=== PATIENT | male | born 1995 | race Caucasian/White ===

== ENCOUNTER 2016-11-14 07:48 | Emergency (ER) | payer OTHER ==
--- NOTE | 2016-11-14 09:20 | ED NURSING NOTES ---
Clinical Report - Nurs[facility] [address] [place] [address] 11/14/2016 7:50 Patient: TRINITY PETTIT TRIAGE Triage time 08:08. Chief Complaint: Location of symptoms- right hand. 08:09 11/14/16. 08:09 11/14/16. Alert. No acute distress. ( Pt cut right pinky finger this AM on glass, pt states this was from h). SEPSIS SCREEN: Sepsis Screen. Negative (no infection suspected/documented). NEETU COMA SCORE: Neetu Coma Scale: 15- eyes open spontaneously (4); best verbal response- oriented x 4 (5); best motor response- obeys commands (6). --08:10 Benitez Stark R.N. 08:00 11/14/16. BP: 142/90. HR: 90. RR: 18. O2 saturation: 100% on room air. Temp: 98.1 F (oral). Pain level now: 10/14. --08:10 Benitez Stark R.N. Weight: 77.1 kg stated. Height/Length: 69 inches Per Patient. BMI: 25.1. --08:01 Benitez Stark R.N. Medications None. --08:10 Benitez Stark R.N. Medication/allergy information source: the patient. --08:10 Benitez Stark R.N. Allergies Penicillin. --08:10 Benitez Stark R.N. History Arrived by private vehicle. Historian: patient. Accompanied by friend. Primary physician (NONE). 08:09 11/14/16. Injury occurred. This occurred today. Treatment PHYSICIAN RELATIONS REPRESENTATIVE: None. PAST MEDICAL HX: Tetanus status: unknown. Immunizations: status is unknown. SOCIAL HX: Smoker- current status unknown. History of drug use: marijuana. No alcohol use. No infectious disease exposure. ABUSE ASSESSMENT: No report of abuse. FALL RISK ASSESSMENT: Fall risk assessment completed. No fall risk identified. NUTRITIONAL RISK ASSESSMENT: The nutritional risk assessment revealed no deficiencies. FUNCTIONAL ASSESSMENT: Functional assessment: no impairments noted. LEARNING NEEDS ASSESSMENT: The learning needs assessment revealed no barriers. SKIN INTEGRITY ASSESSMENT: Skin integrity risk assessment completed. No skin integrity risk identified. --08:10 Benitez Stark R.N. PROBLEMS: Gastritis. Fall. Myofascial Strain. ADD - Attention Deficit Disorder. --08:10 Benitez Stark R.N. ADDITIONAL SURGERIES: no known surgeries. Assessment 08:11/14/16. --08:10 Benitez Stark R.N. Interventions 08:11/14/16. 08:11/14/16. ID and allergy band on patient. To treatment room. --08:10 Benitez Stark R.N. PHYSICAL ASSESSMENT 08:11/14/16. GENERAL / NEURO / PSYCH: Oriented X 4. Alert. Appears in no acute distress. EXTREMITIES: Right hand web space: laceration. SKIN: Skin is warm and dry. --08:10 Benitez Stark R.N. NURSING PROGRESS NOTES 08:11/14/2016 [id number] PERTUSSIS IM 0.5 mL given. (Lot#: [id number], expiration date: 05/14/2018, Glue Line Operator: sanofi pasteur). Given in the left deltoid. Allergies verified and confirmed 5 rights. Vaccine information statement provided to the patient. --08:16 Benitez Stark R.N. 08:10 11/14/16. Two patient identifiers checked. Call light placed in reach. Side rails up x 2. Bed placed in lowest position. Brakes of bed on. Patient ready for evaluation- chart flagged. --08:10 Benitez Stark R.N. Wound cleansed with water and Hibiclens. --08:21 Bonita Callejas 08:37 11/14/2016 Zofran ODT (Ondansetron) PO 4 mg given. Allergies verified and confirmed 5 rights. --08:37 Krissy Green R.N. 08:44 11/14/16. ( Pt became nauseous when MD was going to suture wound, gave Zofran PO). --08:44 Benitez Stark R.N. 08:54 11/14/2016 Lidocaine Injection 2 % given. Allergies verified and confirmed 5 rights. (given by ). --09:19 Benitez Stark R.N. DISPOSITION / DISCHARGE Departure time: 09:33. Condition at departure: improved. No learning barriers present. Discharge instructions provided and reviewed with the patient. Patient verbalized understanding. Written instructions provided in Estonian. ( Wound care done and abx oint applied). The patient was discharged home and accompanied by family. He left the Emergency Department ambulatory and via private vehicle. Family member driving. --09:34 Krissy Green R.N. 09:33 11/14/16. BP: 128/94. HR: 78. RR: 16. O2 saturation: 98%. Pain level now 0/10. --09:34 Krissy Green R.N. Locked/Released at 11/14/2016 10:06 by Benitez Stark R.N.
--- NOTE | 2016-11-14 09:20 | ED ORDER SUMMARY ---
..... Patient: TRINITY PETTIT OrderSheet [facility] VisitID: [id number] [address] [place] [address] 21y, M Registration Date/Time: 11/14/2016 ORDER SHEET Weight: 77.1 kg (stated) Allergies: Penicillin GENERAL ORDERS: Suture Set-up: (08:09 11/14/2016 Tete Spears) (Ack 8:15 JBoardlemarlin R.N.) (8:19 NEALardmitriy) MEDICATION ORDERS: Lidocaine Injection 2 % (soln) (NOW, place at bedside) (08:08 11/14/2016 Tete Spears) (Ack 8:11 JBoardley R.N.) (9:19 ORLYoardley R.N.) Hvbxsxw-Uxnotr-Bprgs Pertussis IM 0.5 mL (NOW, per protocol) (08:09 11/14/2016 Tete Spears) (Ack 8:11 JBoardley R.N.) (8:16 JBoardley R.N.) Zofran ODT PO 4 mg (NOW) (08:29 11/14/2016 Tete Spears) (Ack 8:33 DMaziarka R.N.) (8:37 DMaziarka R.N.) IV FLUIDS: ORDER SHEET NOTES: [Electronically signed by Triston Canas Dr. (09:55 11/14/2016)] [Electronically signed by Benitez Stark R.N. (10:06 11/14/2016)] [Electronically locked/signed by Benitez Stark R.N. (10:06 11/14/2016)]
--- NOTE | 2016-11-14 09:20 | ED CLINICAL REPORT ---
Clinical Report - Physicians/Mid Levels [facility] [address] [place] [address] 11/14/2016 7:50 Patient: TRINITY PETTIT Time Seen: 08:02; initial patient contact. Arrived- By private vehicle. Historian- patient. HISTORY OF PRESENT ILLNESS Chief Complaint: Injury to the right 5th (little) finger. The injury happened just prior to arrival. Occurred at home. The patient sustained a laceration from broken glass. Patient is experiencing mild pain. Patient denies injury to the head or neck. REVIEW OF SYSTEMS The patient sustained a laceration. No tingling, numbness or foreign body. All systems otherwise negative, except as recorded above. PAST HISTORY The patient's dominant hand is the right. SOCIAL HISTORY Smoker - current status unknown. History of drug use: marijuana. ADDITIONAL NOTES The nursing notes have been reviewed. PHYSICAL EXAM Vital Signs: 11/14/2016 08:00 BP: 142/90. HR: 90. RR: 18. O2 saturation: 100%. Temp: 98.1 F. Pain level now: 10/14. Have been reviewed. Hypertensive. Heart rate normal. Respiratory rate normal. Temperature normal. Oxygen saturation normal. Appearance: Alert. Oriented X3. No acute distress. Skin: Skin warm and dry. Extremities: Right little finger: mild tenderness and deep 1.0 cm laceration of the volar aspect and MCP joint. Neurovascular intact distally. No swelling. No limitation in movement. Hand and wrist exam otherwise negative. Extremities otherwise negative. Neuro, Vascular and Tendons: Vascular status intact. Sensation intact. Motor intact. Tendon function intact. Neuro: Oriented X 3. No motor deficit. No sensory deficit. PROGRESS AND PROCEDURES Digital Nerve Block - Finger: Time: 09:17. Per protocol, time-out completed immediately before the procedure. Digital nerve block performed on the right little finger. Web space and volar approach utilized. Landmarks identified. Skin prepped. Total volume of 3 mL 2% Lidocaine infiltrated via two punctures using a 27-gauge needle. Patient cooperative during procedure. No complications encountered. Excellent anesthesia achieved. Laceration Repair: Time: 09:17. Location: right little finger. Per protocol, time-out completed immediately before the procedure. Length: 1.5 cm. Complexity: simple (local anesthesia used). Wound depth/shape- subcutaneous and linear. Wound is clean. Distal neuro/vascular/tendon status normal. Tendon examined. No tendon deficit or laceration or tendon injury. Anesthesia provided by digital block using 2% lidocaine. Prepped with Hibiclens. Wound explored, cleansed, irrigated and examined to the base in bloodless field extensively with normal saline. Closure of skin: interrupted 3-0 Prolene (4 sutures). Post-procedure: he is stable and there are no complications. Bleeding is controlled and neuro-vascular status is intact distal to the wound. Dressing applied. Tetanus immunization given. Estimated blood loss: 3 mL. Disposition: Discharged home in good and improved condition. Condition: good. CLINICAL IMPRESSION Single deep laceration to the right little finger.No foreign body present or right fingernail injury. INSTRUCTIONS Protect wound and keep wound area clean. Change dressing twice daily. You may wash wounds briefly, then dry. Apply bacitracin twice daily. Sutures/duy should be removed in seven days. Your Current Medications: CONTINUE TAKING THE FOLLOWING MEDICATIONS: None*. Follow-up: Screening today revealed the patient's blood pressure to be in the hypertensive range. The patient should follow up with a primary care provider for blood pressure management. Follow-up with: [facility], , , [address], , [place], [id number] Follow up in seven days for suture removal. Call for an appointment. (Electronically signed by Triston Canas Dr. 11/14/2016 9:55)
--- NOTE | 2016-11-14 09:20 | ED NURSING NOTES ---
Clinical Report - Nurses [facility] [address] [place] [address] 11/14/2016 7:50 Patient: TRINITY PETTIT TRIAGE Triage time 08:08. Chief Complaint: Location of symptoms- right hand. 08:09 11/14/16. 08:09 11/14/16. Alert. No acute distress. ( Pt cut right pinky finger this AM on glass, pt states this was from h). SEPSIS SCREEN: Sepsis Screen. Negative (no infection suspected/documented). NEETU COMA SCORE: Neetu Coma Scale: 15- eyes open spontaneously (4); best verbal response- oriented x 4 (5); best motor response- obeys commands (6). --08:10 Benitez Stark R.N. 08:00 11/14/16. BP: 142/90. HR: 90. RR: 18. O2 saturation: 100% on room air. Temp: 98.1 F (oral). Pain level now: 10/14. --08:10 Benitez Stark R.N. Weight: 77.1 kg stated. Height/Length: 69 inches Per Patient. BMI: 25.1. --08:01 Benitez Stark R.N. Medications None. --08:10 Benitez Stark R.N. Medication/allergy information source: the patient. --08:10 Benitez Stark R.N. Allergies Penicillin. --08:10 Benitez Stark R.N. History Arrived by private vehicle. Historian: patient. Accompanied by friend. Primary physician (NONE). 08:09 11/14/16. Injury occurred. This occurred today. Treatment ELECTROPLATING LABORER: None. PAST MEDICAL HX: Tetanus status: unknown. Immunizations: status is unknown. SOCIAL HX: Smoker- current status unknown. History of drug use: marijuana. No alcohol use. No infectious disease exposure. ABUSE ASSESSMENT: No report of abuse. FALL RISK ASSESSMENT: Fall risk assessment completed. No fall risk identified. NUTRITIONAL RISK ASSESSMENT: The nutritional risk assessment revealed no deficiencies. FUNCTIONAL ASSESSMENT: Functional assessment: no impairments noted. LEARNING NEEDS ASSESSMENT: The learning needs assessment revealed no barriers. SKIN INTEGRITY ASSESSMENT: Skin integrity risk assessment completed. No skin integrity risk identified. --08:10 Benitez Stark R.N. PROBLEMS: Gastritis. Fall. Myofascial Strain. ADD - Attention Deficit Disorder. --08:10 Benitez Stark R.N. ADDITIONAL SURGERIES: no known surgeries. Assessment 08:11/14/16. --08:10 Benitez Stark R.N. Interventions 08:11/14/16. 08:11/14/16. ID and allergy band on patient. To treatment room. --08:10 Benitez Stark R.N. PHYSICAL ASSESSMENT 08:11/14/16. GENERAL / NEURO / PSYCH: Oriented X 4. Alert. Appears in no acute distress. EXTREMITIES: Right hand web space: laceration. SKIN: Skin is warm and dry. --08:10 Benitez Stark R.N. NURSING PROGRESS NOTES 08:11/14/2016 [id number]-ZJFKAP-YDLIO PERTUSSIS IM 0.5 mL given. (Lot#: [id number], expiration date: 05/14/2018, Airline Stewardess: sanofi pasteur). Given in the left deltoid. Allergies verified and confirmed 5 rights. Vaccine information statement provided to the patient. --08:16 Benitez Stark R.N. 08:10 11/14/16. Two patient identifiers checked. Call light placed in reach. Side rails up x 2. Bed placed in lowest position. Brakes of bed on. Patient ready for evaluation- chart flagged. --08:10 Benitez Stark R.N. Wound cleansed with water and Hibiclens. --08:21 Bonita Callejas 08:37 11/14/2016 Zofran ODT (Ondansetron) PO 4 mg given. Allergies verified and confirmed 5 rights. --08:37 Krissy Green R.N. 08:44 11/14/16. ( Pt became nauseous when MD was going to suture wound, gave Zofran PO). --08:44 Benitez Stark R.N. 08:54 11/14/2016 Lidocaine Injection 2 % given. Allergies verified and confirmed 5 rights. (given by ). --09:19 Benitez Stark R.N. DISPOSITION / DISCHARGE Departure time: 09:33. Condition at departure: improved. No learning barriers present. Discharge instructions provided and reviewed with the patient. Patient verbalized understanding. Written instructions provided in Tunisian. ( Wound care done and abx oint applied). The patient was discharged home and accompanied by family. He left the Emergency Department ambulatory and via private vehicle. Family member driving. --09:34 Krissy Green R.N. 09:33 11/14/16. BP: 128/94. HR: 78. RR: 16. O2 saturation: 98%. Pain level now 0/10. --09:34 Krissy Green R.N. Locked/Released at 11/14/2016 10:06 by Benitez Stark R.N.
--- NOTE | 2016-11-14 09:20 | ED ORDER SUMMARY ---
..... Patient: TRINITY PETTIT OrderSheet [facility] VisitID: [id number] [address] [place] [address] 21y, M Registration Date/Time: 11/14/2016 ORDER SHEET Weight: 77.1 kg (stated) Allergies: Penicillin GENERAL ORDERS: Suture Set-up: (08:09 11/14/2016 Tete Spears) (Ack 8:15 JBoardlemarlin R.N.) (8:19 NEALardmitriy) MEDICATION ORDERS: Lidocaine Injection 2 % (soln) (NOW, place at bedside) (08:08 11/14/2016 Tete Spears) (Ack 8:11 JBoardley R.N.) (9:19 ORLYoardley R.N.) Zmycynh-Zgiuhy-Puaju Pertussis IM 0.5 mL (NOW, per protocol) (08:09 11/14/2016 Tete Spears) (Ack 8:11 JBoardley R.N.) (8:16 JBoardley R.N.) Zofran ODT PO 4 mg (NOW) (08:29 11/14/2016 Tete Spears) (Ack 8:33 DMaziarka R.N.) (8:37 DMaziarka R.N.) IV FLUIDS: ORDER SHEET NOTES: [Electronically signed by Triston Canas Dr. (09:55 11/14/2016)] [Electronically signed by Benitez Stark R.N. (10:06 11/14/2016)] [Electronically locked/signed by Benitez Stark R.N. (10:06 11/14/2016)]
--- NOTE | 2016-11-14 09:20 | ED CLINICAL REPORT ---
Clinical Report - Physicians/Mid Levels [facility] [address] [place] [address] 11/14/2016 7:50 Patient: TRINITY PETTIT Time Seen: 08:02; initial patient contact. Arrived- By private vehicle. Historian- patient. HISTORY OF PRESENT ILLNESS Chief Complaint: Injury to the right 5th (little) finger. The injury happened just prior to arrival. Occurred at home. The patient sustained a laceration from broken glass. Patient is experiencing mild pain. Patient denies injury to the head or neck. REVIEW OF SYSTEMS The patient sustained a laceration. No tingling, numbness or foreign body. All systems otherwise negative, except as recorded above. PAST HISTORY The patient's dominant hand is the right. SOCIAL HISTORY Smoker - current status unknown. History of drug use: marijuana. ADDITIONAL NOTES The nursing notes have been reviewed. PHYSICAL EXAM Vital Signs: 11/14/2016 08:00 BP: 142/90. HR: 90. RR: 18. O2 saturation: 100%. Temp: 98.1 F. Pain level now: 10/14. Have been reviewed. Hypertensive. Heart rate normal. Respiratory rate normal. Temperature normal. Oxygen saturation normal. Appearance: Alert. Oriented X3. No acute distress. Skin: Skin warm and dry. Extremities: Right little finger: mild tenderness and deep 1.0 cm laceration of the volar aspect and MCP joint. Neurovascular intact distally. No swelling. No limitation in movement. Hand and wrist exam otherwise negative. Extremities otherwise negative. Neuro, Vascular and Tendons: Vascular status intact. Sensation intact. Motor intact. Tendon function intact. Neuro: Oriented X 3. No motor deficit. No sensory deficit. PROGRESS AND PROCEDURES Digital Nerve Block - Finger: Time: 09:17. Per protocol, time-out completed immediately before the procedure. Digital nerve block performed on the right little finger. Web space and volar approach utilized. Landmarks identified. Skin prepped. Total volume of 3 mL 2% Lidocaine infiltrated via two punctures using a 27-gauge needle. Patient cooperative during procedure. No complications encountered. Excellent anesthesia achieved. Laceration Repair: Time: 09:17. Location: right little finger. Per protocol, time-out completed immediately before the procedure. Length: 1.5 cm. Complexity: simple (local anesthesia used). Wound depth/shape- subcutaneous and linear. Wound is clean. Distal neuro/vascular/tendon status normal. Tendon examined. No tendon deficit or laceration or tendon injury. Anesthesia provided by digital block using 2% lidocaine. Prepped with Hibiclens. Wound explored, cleansed, irrigated and examined to the base in bloodless field extensively with normal saline. Closure of skin: interrupted 3-0 Prolene (4 sutures). Post-procedure: he is stable and there are no complications. Bleeding is controlled and neuro-vascular status is intact distal to the wound. Dressing applied. Tetanus immunization given. Estimated blood loss: 3 mL. Disposition: Discharged home in good and improved condition. Condition: good. CLINICAL IMPRESSION Single deep laceration to the right little finger.No foreign body present or right fingernail injury. INSTRUCTIONS Protect wound and keep wound area clean. Change dressing twice daily. You may wash wounds briefly, then dry. Apply bacitracin twice daily. Sutures/duy should be removed in seven days. Your Current Medications: CONTINUE TAKING THE FOLLOWING MEDICATIONS: None*. Follow-up: Screening today revealed the patient's blood pressure to be in the hypertensive range. The patient should follow up with a primary care provider for blood pressure management. Follow-up with: [facility], , , [address], , [place], [id number] Follow up in seven days for suture removal. Call for an appointment. (Electronically signed by Triston Canas Dr. 11/14/2016 9:55)
--- NOTE | 2016-11-14 10:06 | ED MED RECONCILIATION SUMMARY ---
Patient: TRINITY PETTIT Medication Reconciliation Report [facility] VisitID: [id number] [address] [place] [address] 21y, M Registration Date/Time: 11/14/2016 Weight: 77.1 kg Height/Length: 69 in. BMI: 25.1 ALLERGIES: Penicillin The patient's Home Medications are listed below: NONE. The source(s) of the original Home Medication information: patient The following Medications were given to the patient in the Emergency Department: UBRAXCK-ROTPBM-CIJXW PERTUSSIS [IM] IM 0.5 mL, administered: 11/14/2016 8:10:00 AM Zofran ODT [PO] PO 4 mg, administered: 11/14/2016 8:37:00 AM Lidocaine [Injection] Injection 2 %, administered: 11/14/2016 8:54:00 AM The following Medications were prescribed to the patient: None.
--- NOTE | 2016-11-14 10:06 | ED MED RECONCILIATION SUMMARY ---
Patient: TRINITY PETTIT Medication Reconciliation Report [facility] VisitID: [id number] [address] [place] [address] 21y, M Registration Date/Time: 11/14/2016 Weight: 77.1 kg Height/Length: 69 in. BMI: 25.1 ALLERGIES: Penicillin The patient's Home Medications are listed below: NONE. The source(s) of the original Home Medication information: patient The following Medications were given to the patient in the Emergency Department: HGGAMMT-USAFSQ-SUGZV PERTUSSIS [IM] IM 0.5 mL, administered: 11/14/2016 8:10:00 AM Zofran ODT [PO] PO 4 mg, administered: 11/14/2016 8:37:00 AM Lidocaine [Injection] Injection 2 %, administered: 11/14/2016 8:54:00 AM The following Medications were prescribed to the patient: None.
--- NOTE | 2016-11-14 10:06 | ED DISCHARGE INSTRUCTIONS ---
Patient: TRINITY PETTIT General Instructions [facility] VisitID: [id number] [address] [place] [address] 21y, M Registration Date/Time: 11/14/2016 Single deep laceration to the right little finger.No foreign body present or right fingernail injury. INSTRUCTIONS Protect wound and keep wound area clean. Change dressing twice daily. You may wash wounds briefly, then dry. Apply bacitracin twice daily. Sutures/duy should be removed in seven days. Your Current Medications: CONTINUE TAKING THE FOLLOWING MEDICATIONS: None*. Follow-up: Screening today revealed the patient's blood pressure to be in the hypertensive range. The patient should follow up with a primary care provider for blood pressure management. Follow-up with: [facility], , , [address], , [place], [address] Follow up in seven days for suture removal. Call for an appointment. ADDITIONAL INFORMATION Laceration (All Closures) Alaceration is a cut through the skin. This will usually require stitches (sutures) or duy if it is deep. Minor cuts may be treated with a surgical tape closure orskin glue. Home care The following guidelines will help you care for your laceration at home: Extremity, face, or trunk wounds Keep the wound clean and dry. If a bandage was applied and it becomes wet or dirty, replace it. Otherwise, leave it in place for the first 24 hours. If stitches or duy were used, clean the wound daily. After removing the bandage, wash the area with soap and water. Use a wet cotton swab to loosen and remove any blood or crust that forms. The doctor may prescribe an antibiotic cream or ointment to prevent infection. Do not stop taking this medication until you have finished the prescribed course or the doctor tells you to stop. The doctor may also prescribe medications for pain. Follow the doctors instructions for taking these medications. You may remove the bandage to shower as usual after the first 24 hours, but do not soak the area in water (no swimming) until the stitches or duy are removed. If surgical tape was used, keep the area clean and dry. If it becomes wet, blot it dry with a towel. If skin glue was used, do not scratch, rub, or pick at the adhesive film. Do not place tape directly over the film. Do not apply liquid, ointment, or creams to the wound while the film is in place. Do not clean the wound with peroxide and do not apply ointments. Avoid activities that cause heavy sweating until the film has fallen off. Protect the wound from prolonged exposure to sunlight or tanning lamps. You may shower as usual but do not soak the wound in water (no baths or swimming). The film will fall off by itself in 510 days. Scalp wounds During the first two days, you may carefully rinse your hair in the shower to remove blood, glass or dirt particles. After two days, you may shower and shampoo your hair normally. Do not soak your scalp in the tub or go swimming until the stitches or duy have been removed. Talk with your doctor before applying any antibiotic ointment to the wound. Mouth wounds Eat soft foods to reduce pain. If the cut is inside of your mouth, clean by rinsing after each meal and at bedtime with a mixture of equal parts water and hydrogen peroxide (do not swallow!). Or, you can use a cotton swab to directly apply hydrogen peroxide onto the cut. Mouth wounds can be painful when eating. You may use an wfkh-oyj-kehpkws local numbing solution for pain relief. If this is not available, you may use any numbing solution for teething babies. You may apply this directly to the sores with a cotton-tip swab or with your finger. Follow-up care Follow up with your health care provider. Most skin wounds heal within ten days. Mouth and facial wounds heal within five days. However, even with proper treatment, a wound infection may sometimes occur. Therefore, you should check the wound daily for signs of infection listed below. Stitches should be removed from the face within five days; stitches and duy should be removed from other parts of the body within 714 days. If dissolving stitches were used in the mouth, these will fall out or dissolve without the need for removal. If tape closures were used, remove them yourself if they have not fallen off after 7 days. Ifskin glue was used, the film will fall off by itself in 510 days. When to seek medical care Get prompt medical attention if any of these occur: Bleeding not controlled by direct pressure Signs of infection, including increasing pain in the wound, increasing wound redness or swelling, or pus coming from the wound Fever of 100.4F (38C) or higher, or as directed by your health care provider Stitches or duy come apart or fall out or surgical tape falls off before 7 days Wound edges re-open You have been given the following additional information: Laceration, All (Electronically signed by Triston Canas Dr. 11/14/2016 9:55)
--- NOTE | 2016-11-14 10:06 | ED MAR SUMMARY ---
..... Medication Administration Record [facility] [address] [place] [address] Patient: TRINITY PETTIT Visit ID: [id number] 21y, M Weight: 77.1 kg Height/Length: 69 in BMI: 25.1 ALLERGIES: Penicillin Given 08:10 11/14/2016 Benitez Stark, [place] Medication Administered: OXLYRZS-PUUHCP-JSRAC PERTUSSIS [IM], Dose: 0.5 mL IM. Medication Ordered: Lrelafy-Eatupu-Ncipw Pertussis IM 0.5 mL (NOW, per protocol). Given 08:37 11/14/2016 Krissy Green R.N. Medication Administered: ZOFRAN ODT [PO] (ONDANSETRON), Dose: 4 mg PO. Medication Ordered: Zofran ODT PO 4 mg (NOW). Given 08:54 11/14/2016 Benitez Stark [place] Medication Administered: LIDOCAINE [INJECTION], Dose: 2 % Injection. Medication Ordered: Lidocaine Injection 2 % (soln) (NOW, place at bedside).
--- NOTE | 2016-11-14 10:06 | ED MAR SUMMARY ---
..... Medication Administration Record [facility] [address] [place] [address] Patient: TRINITY PETTIT Visit ID: [id number] 21y, M Weight: 77.1 kg Height/Length: 69 in BMI: 25.1 ALLERGIES: Penicillin Given 08:10 11/14/2016 Benitez Stark, [place] Medication Administered: RJUPZKE-LSYWMB-TQHVM PERTUSSIS [IM], Dose: 0.5 mL IM. Medication Ordered: Zyqqukd-Ubmyoe-Ywscz Pertussis IM 0.5 mL (NOW, per protocol). Given 08:37 11/14/2016 Krissy Green R.N. Medication Administered: ZOFRAN ODT [PO] (ONDANSETRON), Dose: 4 mg PO. Medication Ordered: Zofran ODT PO 4 mg (NOW). Given 08:54 11/14/2016 Benitez Stark [place] Medication Administered: LIDOCAINE [INJECTION], Dose: 2 % Injection. Medication Ordered: Lidocaine Injection 2 % (soln) (NOW, place at bedside).
--- NOTE | 2016-11-14 10:06 | ED DISCHARGE INSTRUCTIONS ---
Patient: TRINITY PETTIT General Instructions [facility] VisitID: [id number] [address] [place] [address] 21y, M Registration Date/Time: 11/14/2016 Single deep laceration to the right little finger.No foreign body present or right fingernail injury. INSTRUCTIONS Protect wound and keep wound area clean. Change dressing twice daily. You may wash wounds briefly, then dry. Apply bacitracin twice daily. Sutures/duy should be removed in seven days. Your Current Medications: CONTINUE TAKING THE FOLLOWING MEDICATIONS: None*. Follow-up: Screening today revealed the patient's blood pressure to be in the hypertensive range. The patient should follow up with a primary care provider for blood pressure management. Follow-up with: [facility], , , [address], , [place], [address] Follow up in seven days for suture removal. Call for an appointment. ADDITIONAL INFORMATION Laceration (All Closures) Alaceration is a cut through the skin. This will usually require stitches (sutures) or duy if it is deep. Minor cuts may be treated with a surgical tape closure orskin glue. Home care The following guidelines will help you care for your laceration at home: Extremity, face, or trunk wounds Keep the wound clean and dry. If a bandage was applied and it becomes wet or dirty, replace it. Otherwise, leave it in place for the first 24 hours. If stitches or duy were used, clean the wound daily. After removing the bandage, wash the area with soap and water. Use a wet cotton swab to loosen and remove any blood or crust that forms. The doctor may prescribe an antibiotic cream or ointment to prevent infection. Do not stop taking this medication until you have finished the prescribed course or the doctor tells you to stop. The doctor may also prescribe medications for pain. Follow the doctors instructions for taking these medications. You may remove the bandage to shower as usual after the first 24 hours, but do not soak the area in water (no swimming) until the stitches or duy are removed. If surgical tape was used, keep the area clean and dry. If it becomes wet, blot it dry with a towel. If skin glue was used, do not scratch, rub, or pick at the adhesive film. Do not place tape directly over the film. Do not apply liquid, ointment, or creams to the wound while the film is in place. Do not clean the wound with peroxide and do not apply ointments. Avoid activities that cause heavy sweating until the film has fallen off. Protect the wound from prolonged exposure to sunlight or tanning lamps. You may shower as usual but do not soak the wound in water (no baths or swimming). The film will fall off by itself in 510 days. Scalp wounds During the first two days, you may carefully rinse your hair in the shower to remove blood, glass or dirt particles. After two days, you may shower and shampoo your hair normally. Do not soak your scalp in the tub or go swimming until the stitches or duy have been removed. Talk with your doctor before applying any antibiotic ointment to the wound. Mouth wounds Eat soft foods to reduce pain. If the cut is inside of your mouth, clean by rinsing after each meal and at bedtime with a mixture of equal parts water and hydrogen peroxide (do not swallow!). Or, you can use a cotton swab to directly apply hydrogen peroxide onto the cut. Mouth wounds can be painful when eating. You may use an yteq-pch-uqvyhzf local numbing solution for pain relief. If this is not available, you may use any numbing solution for teething babies. You may apply this directly to the sores with a cotton-tip swab or with your finger. Follow-up care Follow up with your health care provider. Most skin wounds heal within ten days. Mouth and facial wounds heal within five days. However, even with proper treatment, a wound infection may sometimes occur. Therefore, you should check the wound daily for signs of infection listed below. Stitches should be removed from the face within five days; stitches and duy should be removed from other parts of the body within 714 days. If dissolving stitches were used in the mouth, these will fall out or dissolve without the need for removal. If tape closures were used, remove them yourself if they have not fallen off after 7 days. Ifskin glue was used, the film will fall off by itself in 510 days. When to seek medical care Get prompt medical attention if any of these occur: Bleeding not controlled by direct pressure Signs of infection, including increasing pain in the wound, increasing wound redness or swelling, or pus coming from the wound Fever of 100.4F (38C) or higher, or as directed by your health care provider Stitches or duy come apart or fall out or surgical tape falls off before 7 days Wound edges re-open You have been given the following additional information: Laceration, All (Electronically signed by Triston Canas Dr. 11/14/2016 9:55)
== END 2016-11-14 09:34 | disposition home or self-care (01) ==
LOC: ED SRH 07:48
DX: S61.216A Laceration without foreign body of right little finger without damage to nail, initial encounter (principal); W25.XXXA Contact with sharp glass, initial encounter; Y93.89 Activity, other specified; Y92.009 Unspecified place in unspecified non-institutional (private) residence as the place of occurrence of the external cause; Y99.8 Other external cause status; Z23 Encounter for immunization; Z88.0 Allergy status to penicillin

== ENCOUNTER 2016-11-19 00:39 | Emergency (ER) | payer OTHER ==
--- NOTE | 2016-11-19 01:29 | ED CLINICAL REPORT ---
Clinical Report - Physicians/Mid Levels [facility] [address] [address] 11/19/2016 0:38 Patient: TRINITY PETTIT Time Seen: 00:47; initial patient contact. Arrived- By private vehicle. Historian- patient. HISTORY OF PRESENT ILLNESS Chief Complaint: SORE THROAT. This started about 4 days ago and is still present. It was gradual in onset. Pain described as mild. The patient has had a sore throat. No nasal discharge or congestion. Similar symptoms previously: None. Recent medical care: Not recently seen/assessed. REVIEW OF SYSTEMS No fever, cough, difficulty breathing or nausea. He has had mild vomiting. The vomiting was post-tussive. All systems otherwise negative, except as recorded above. PAST HISTORY Myofascial Strain. ADD - Attention Deficit Disorder. Surgeries: No history of previous surgery. Additional Surgeries: no known surgeries. Medications: None. Allergies: Penicillin. SOCIAL HISTORY Current every day smoker. No alcohol use or drug use. ADDITIONAL NOTES The nursing notes have been reviewed. PHYSICAL EXAM Vital Signs: 11/19/2016 00:44 BP: 152/100. HR: 101. RR: 20. O2 saturation: 97%. Temp: 98.4 F. Pain level now: 5/10. Have been reviewed. Hypertensive. Tachycardic. Respiratory rate normal. Temperature normal. Oxygen saturation normal. Appearance: Alert. No acute distress. Head: Normal external inspection. ENT: Moderate generalized pharyngeal erythema with right tonsillar swelling and left tonsillar swelling. No right tonsillar exudate or left tonsillar exudate. No trismus present. Neck: No adenopathy. CVS: Normal heart rate and rhythm. Heart sounds normal. Respiratory: No respiratory distress. Breath sounds normal. Abdomen: Soft and nontender. No organomegaly. Skin: Normal skin color. No rash. Neuro: Oriented X 3. LABS, X-RAYS, AND EKG Laboratory Tests: Culture, Strep Screen: (BRETT: 11/19/2016 01:08) ( MsgRcvd 11/19/2016 01:15) Final results Test Result Flag Units (Reference) RAPID STREP SCREEN - THROAT CALLED TO: N/A -- DATE: 11/19/16 NEGATIVE SCREEN: RAPID STREP SCREEN NEGATIVE; CONFIRMATION TO FOLLOW . PROGRESS AND PROCEDURES Disposition: Discharged home in good and improved condition. Condition: good. CLINICAL IMPRESSION Acute viral pharyngitis Vomiting with nausea. Not bilious. INSTRUCTIONS Drink plenty of fluids. Do not smoke. Seek medical help to quit smoking. Your Current Medications: CONTINUE TAKING THE FOLLOWING MEDICATIONS: None*. Prescription Medications: Zofran (orally disintegrating tablets) 4 mg: take 1 orally every 6 hours as needed for nausea and vomiting. Dispense ten (10). No refill. Substitution is permissible. (Electronically signed by Triston Canas Dr. 11/19/2016 1:30)
--- NOTE | 2016-11-19 01:29 | ED CLINICAL REPORT ---
Clinical Report - Physicians/Mid Levels [facility] [address] [place] [address] 11/19/2016 0:38 Patient: TRINITY PETTIT Time Seen: 00:47; initial patient contact. Arrived- By private vehicle. Historian- patient. HISTORY OF PRESENT ILLNESS Chief Complaint: SORE THROAT. This started about 4 days ago and is still present. It was gradual in onset. Pain described as mild. The patient has had a sore throat. No nasal discharge or congestion. Similar symptoms previously: None. Recent medical care: Not recently seen/assessed. REVIEW OF SYSTEMS No fever, cough, difficulty breathing or nausea. He has had mild vomiting. The vomiting was post-tussive. All systems otherwise negative, except as recorded above. PAST HISTORY Myofascial Strain. ADD - Attention Deficit Disorder. Surgeries: No history of previous surgery. Additional Surgeries: no known surgeries. Medications: None. Allergies: Penicillin. SOCIAL HISTORY Current every day smoker. No alcohol use or drug use. ADDITIONAL NOTES The nursing notes have been reviewed. PHYSICAL EXAM Vital Signs: 11/19/2016 00:44 BP: 152/100. HR: 101. RR: 20. O2 saturation: 97%. Temp: 98.4 F. Pain level now: 5/10. Have been reviewed. Hypertensive. Tachycardic. Respiratory rate normal. Temperature normal. Oxygen saturation normal. Appearance: Alert. No acute distress. Head: Normal external inspection. ENT: Moderate generalized pharyngeal erythema with right tonsillar swelling and left tonsillar swelling. No right tonsillar exudate or left tonsillar exudate. No trismus present. Neck: No adenopathy. CVS: Normal heart rate and rhythm. Heart sounds normal. Respiratory: No respiratory distress. Breath sounds normal. Abdomen: Soft and nontender. No organomegaly. Skin: Normal skin color. No rash. Neuro: Oriented X 3. LABS, X-RAYS, AND EKG Laboratory Tests: Culture, Strep Screen: (BRETT: 11/19/2016 01:08) ( MsgRcvd 11/19/2016 01:15) Final results Test Result Flag Units (Reference) RAPID STREP SCREEN - THROAT CALLED TO: N/A -- DATE: 11/19/16 NEGATIVE SCREEN: RAPID STREP SCREEN NEGATIVE; CONFIRMATION TO FOLLOW . PROGRESS AND PROCEDURES Disposition: Discharged home in good and improved condition. Condition: good. CLINICAL IMPRESSION Acute viral pharyngitis Vomiting with nausea. Not bilious. INSTRUCTIONS Drink plenty of fluids. Do not smoke. Seek medical help to quit smoking. Your Current Medications: CONTINUE TAKING THE FOLLOWING MEDICATIONS: None*. Prescription Medications: Zofran (orally disintegrating tablets) 4 mg: take 1 orally every 6 hours as needed for nausea and vomiting. Dispense ten (10). No refill. Substitution is permissible. (Electronically signed by Triston Canas Dr. 11/19/2016 1:30)
--- NOTE | 2016-11-19 01:29 | ED NURSING NOTES ---
Clinical Report - Nurses [facility] [address] [place] [address] 11/19/2016 0:38 Patient: TRINITY PETTIT TRIAGE Triage time 00:44. Acuity: LEVEL 3. Chief Complaint: VOMITING and (sore throat). Alert. NEETU COMA SCORE: Neetu Coma Scale: 15- eyes open spontaneously (4); best verbal response- oriented x 4 (5); best motor response- obeys commands (6). --00:49 Dae Adler R.N. 00:44 11/19/16. BP: 152/100. HR: 101. RR: 20. O2 saturation: 97% on room air. Temp: 98.4 F (oral). Pain level now: 12/14. --00:49 Dae Adler R.N. Weight: 77.1 kg stated. Height/Length: 71 inches Per Patient. BMI: 23.7. --00:45 Dae Adler R.N. Medications None. --00:45 Dae Adler R.N. Allergies Penicillin. --00:45 Dae Adler R.N. History Arrived by private vehicle. Historian: patient. Accompanied by family. This started today. ( since "monday afternoon"). He has had nausea and vomiting. SOCIAL HX: Heavy tobacco smoker (cigarette)- less than 1 pack per day. No alcohol use or drug use. SELF HARM ASSESSMENT: A self harm assessment was performed. The patient answered "no" to the question "Have you noticed less interest or pleasure in doing things?", "Do you have thoughts of harming or killing yourself?", "Are you here because you tried to hurt yourself?", "Have you ever tried to hurt yourself before today?" and "Have you recently had thoughts about harming or killing others?". FALL RISK ASSESSMENT: Fall risk assessment completed. No fall risk identified. NUTRITIONAL RISK ASSESSMENT: The nutritional risk assessment revealed no deficiencies. FUNCTIONAL ASSESSMENT: Functional assessment: no impairments noted. LEARNING NEEDS ASSESSMENT: The learning needs assessment revealed no barriers. SKIN INTEGRITY ASSESSMENT: Skin integrity risk assessment completed. No skin integrity risk identified. --00:49 Dae Adler R.N. PROBLEMS: Myofascial Strain. ADD - Attention Deficit Disorder. --00:45 Dae Adler R.N. ADDITIONAL SURGERIES: no known surgeries. Interventions ID and allergy band on patient. To room. --00:49 Dae Adler R.N. PHYSICAL ASSESSMENT Ambulatory to room. GENERAL / NEURO / PSYCH: Alert. Oriented X 4. RESPIRATORY: Respirations not labored. ( productive cough, white sputum). CVS: Capillary refill less than 2 seconds. GI / : Abdomen soft and nontender. SKIN: Skin is warm and dry. ( bandage on right hand--pt states having stitches in right hand on monday.). --00:50 Dae Adler R.N. RESPIRATORY: Breath sounds within normal limits. CVS: No abnormal heart sounds. --01:21 Dae Adler R.N. NURSING PROGRESS NOTES Head of bed elevated. Reassurance given. Two patient identifiers checked. Call light placed in reach. Side rails up x 1. Bed placed in lowest position. Brakes of bed on. Patient ready for evaluation- chart flagged. Patient waiting for evaluation. --00:50 Dae Adler R.N. 01:10 11/19/2016 Zofran ODT (Ondansetron) PO Oral Disintegrating Tablets 4 mg given. Allergies verified and confirmed 5 rights. --01:10 Dae Adler R.N. DISPOSITION / DISCHARGE Departure time: 01:39. Condition at departure: stable. No learning barriers present. Discharge instructions provided and reviewed with the patient. Reviewed warnings. Reviewed medication(s) side effects, precautions, dosing and course information. Prescription(s) given to the patient. Treatments reviewed. Reviewed referrals for followup. Patient verbalized understanding. Written instructions provided in [place]. The patient was discharged home and accompanied by cured meat packing supervisor. He left the Emergency Department ambulatory and via private vehicle. Patient driving (patient or cured meat packing supervisor). --01:39 Dae Adler R.N. 00:44 11/19/16. BP: 152/100. HR: 101. RR: 20. O2 saturation: 97% on room air. Temp: 98.4 F (oral). Pain level now: 12/14. --01:39 Dae Adler R.N. Locked/Released at 11/19/2016 1:40 by Dae Adler R.N.
--- NOTE | 2016-11-19 01:29 | ED NURSING NOTES ---
Clinical Report - Nurses [place] [address] [address] 11/19/2016 0:38 Patient: TRINITY EPTTIT TRIAGE Triage time 00:44. Acuity: LEVEL 3. Chief Complaint: VOMITING and (sore throat). Alert. NEETU COMA SCORE: Neetu Coma Scale: 15- eyes open spontaneously (4); best verbal response- oriented x 4 (5); best motor response- obeys commands (6). --00:49 Dae Adler R.N. 00:44 11/19/16. BP: 152/100. HR: 101. RR: 20. O2 saturation: 97% on room air. Temp: 98.4 F (oral). Pain level now: 12/14. --00:49 Dae Adler R.N. Weight: 77.1 kg stated. Height/Length: 71 inches Per Patient. BMI: 23.7. --00:45 Dae Adler R.N. Medications None. --00:45 Dae Adler R.N. Allergies Penicillin. --00:45 Dae Adler R.N. History Arrived by private vehicle. Historian: patient. Accompanied by family. This started today. ( since "monday afternoon"). He has had nausea and vomiting. SOCIAL HX: Heavy tobacco smoker (cigarette)- less than 1 pack per day. No alcohol use or drug use. SELF HARM ASSESSMENT: A self harm assessment was performed. The patient answered "no" to the question "Have you noticed less interest or pleasure in doing things?", "Do you have thoughts of harming or killing yourself?", "Are you here because you tried to hurt yourself?", "Have you ever tried to hurt yourself before today?" and "Have you recently had thoughts about harming or killing others?". FALL RISK ASSESSMENT: Fall risk assessment completed. No fall risk identified. NUTRITIONAL RISK ASSESSMENT: The nutritional risk assessment revealed no deficiencies. FUNCTIONAL ASSESSMENT: Functional assessment: no impairments noted. LEARNING NEEDS ASSESSMENT: The learning needs assessment revealed no barriers. SKIN INTEGRITY ASSESSMENT: Skin integrity risk assessment completed. No skin integrity risk identified. --00:49 Dae Adler R.N. PROBLEMS: Myofascial Strain. ADD - Attention Deficit Disorder. --00:45 Dae Adler R.N. ADDITIONAL SURGERIES: no known surgeries. Interventions ID and allergy band on patient. To room. --00:49 Dae Adler R.N. PHYSICAL ASSESSMENT Ambulatory to room. GENERAL / NEURO / PSYCH: Alert. Oriented X 4. RESPIRATORY: Respirations not labored. ( productive cough, white sputum). CVS: Capillary refill less than 2 seconds. GI / : Abdomen soft and nontender. SKIN: Skin is warm and dry. ( bandage on right hand--pt states having stitches in right hand on monday.). --00:50 Dae Adler R.N. RESPIRATORY: Breath sounds within normal limits. CVS: No abnormal heart sounds. --01:21 Dae Adler R.N. NURSING PROGRESS NOTES Head of bed elevated. Reassurance given. Two patient identifiers checked. Call light placed in reach. Side rails up x 1. Bed placed in lowest position. Brakes of bed on. Patient ready for evaluation- chart flagged. Patient waiting for evaluation. --00:50 Dae Adler R.N. 01:10 11/19/2016 Zofran ODT (Ondansetron) PO Oral Disintegrating Tablets 4 mg given. Allergies verified and confirmed 5 rights. --01:10 Dae Adler R.N. DISPOSITION / DISCHARGE Departure time: 01:39. Condition at departure: stable. No learning barriers present. Discharge instructions provided and reviewed with the patient. Reviewed warnings. Reviewed medication(s) side effects, precautions, dosing and course information. Prescription(s) given to the patient. Treatments reviewed. Reviewed referrals for followup. Patient verbalized understanding. Written instructions provided in Turkmen. The patient was discharged home and accompanied by stitcher tape controlled machine. He left the Emergency Department ambulatory and via private vehicle. Patient driving (patient or stitcher tape controlled machine). --01:39 Dae Adler R.N. 00:44 11/19/16. BP: 152/100. HR: 101. RR: 20. O2 saturation: 97% on room air. Temp: 98.4 F (oral). Pain level now: 12/14. --01:39 Dae Adler R.N. Locked/Released at 11/19/2016 1:40 by Dae Adler R.N.
--- NOTE | 2016-11-19 01:29 | ED ORDER SUMMARY ---
..... Patient: TRINITY PETTIT OrderSheet [facility] VisitID: [id number] [address] [place] [address] 21y, M Registration Date/Time: 11/19/2016 ORDER SHEET Weight: 77.1 kg (stated) Allergies: Penicillin GENERAL ORDERS: Culture, Strep Screen Urgent (01:11/19/2016 Tete Spears) (Ack 1:05 DDavis R.N.) (Ack 1:05 Bridget) (1:10 DDavis R.N.) MEDICATION ORDERS: Zofran ODT PO 4 mg (NOW) (01:05 11/19/2016 Tete Spears) (Ack 1:05 DDavis R.N.) (1:10 DDavis R.N.) IV FLUIDS: ORDER SHEET NOTES: [Electronically signed by Triston Canas Dr. (01:30 11/19/2016)] [Electronically signed by Dae Adler R.N. (01:40 11/19/2016)] [Electronically locked/signed by Dae Adler R.N. (01:40 11/19/2016)]
--- NOTE | 2016-11-19 01:29 | ED ORDER SUMMARY ---
..... Patient: TRINITY PETTIT OrderSheet [facility] VisitID: [id number] [address] [place] [address] 21y, M Registration Date/Time: 11/19/2016 ORDER SHEET Weight: 77.1 kg (stated) Allergies: Penicillin GENERAL ORDERS: Culture, Strep Screen Urgent (01:11/19/2016 Tete Spears) (Ack 1:05 DDavis R.N.) (Ack 1:05 Bridget) (1:10 DDavis R.N.) MEDICATION ORDERS: Zofran ODT PO 4 mg (NOW) (01:05 11/19/2016 Tete Spears) (Ack 1:05 DDavis R.N.) (1:10 DDavis R.N.) IV FLUIDS: ORDER SHEET NOTES: [Electronically signed by Triston Canas Dr. (01:30 11/19/2016)] [Electronically signed by Dae Adler R.N. (01:40 11/19/2016)] [Electronically locked/signed by Dae Adler R.N. (01:40 11/19/2016)]
--- NOTE | 2016-11-19 01:42 | ED DISCHARGE INSTRUCTIONS ---
Patient: TRINITY PETTIT General Instructions Merged With [facility] VisitID: [id number] [place] [address] 21y, M Registration Date/Time: 11/19/2016 Acute viral pharyngitis Vomiting with nausea. Not bilious. INSTRUCTIONS Drink plenty of fluids. Do not smoke. Seek medical help to quit smoking. Your Current Medications: CONTINUE TAKING THE FOLLOWING MEDICATIONS: None*. Prescription Medications: Zofran (orally disintegrating tablets) 4 mg: take 1 orally every 6 hours as needed for nausea and vomiting. Dispense ten (10). No refill. Substitution is permissible. ADDITIONAL INFORMATION Viral Pharyngitis (Sore Throat) Your throat pain is due to an infection called "Viral Pharyngitis", commonly known as "Sore Throat". This is a contagious illness. It is spread through the air by coughing, kissing or by touching others after touching your mouth or nose. Symptoms include throat pain worse with swallowing, aching all over, headache and fever. Unlike strep throat, which is a bacterial infection, this illness does not require treatment with an antibiotic. Home Care: If your symptoms are severe, rest at home for the first 2-3 days. Children: Use acetaminophen (Tylenol) for fever, fussiness or discomfort. In infants over six months of age, you may use ibuprofen (Children's Motrin) instead of Tylenol. [NOTE: If your child has chronic liver or kidney disease or ever had a stomach ulcer or GI bleeding, talk with your chris doctor before using these medicines.] (Aspirin should never be used in anyone under 18 years of age who is ill with a fever. It may cause severe liver damage.) Adults: You may use acetaminophen (Tylenol) or ibuprofen (Motrin, Advil) to control pain or fever, unless another medicine was prescribed. [NOTE: If you have chronic liver or kidney disease or ever had a stomach ulcer or GI bleeding, talk with your doctor before using these medicines.] Throat lozenges or sprays (Chloraseptic and others) will reduce pain. Gargling with warm salt water will also reduce throat pain. Dissolve 1/2 teaspoon of salt in 1 glass of warm water. This is especially useful just before meals. Follow Up with your doctor or as directed by our staff if you are not improving over the next week. Get Prompt Medical Attention if any of the following occur: Fever over 100.5F (38.0C) oral, or over 101.5F (38.6C) rectal for more than three days New or worsening ear pain, sinus pain or headache Painful lumps in the back of your neck Unable to swallow liquids or open your mouth wide due to throat pain Trouble breathing or noisy breathing Muffled voice New rash How To Quit Smoking Smoking is one of the hardest habits to break. About half of all those who have ever smoked have been able to quit, and most of those (about 70%) who still smoke want to quit. Here are some of the best ways to stop smoking. Keep Trying: It takes most smokers about 8 tries before they are finally able to fully quit. So, the more often you try and fail, the better your chance of quitting the next time! So, don't give up! Go Cold Douglass: Most ex-smokers quit cold turkey. Trying to cut back gradually doesn't seem to work as well, perhaps because it continues the smoking habit. Also, it is possible to fool yourself by inhaling more while smoking fewer cigarettes. This results in the same amount of nicotine in your body! Get Support: Support programs can make an important difference, especially for the heavy smoker. These groups offer lectures, methods to change your behavior and peer support. Call the free national Quitline for more information. 332-NWMI-TCO (376-176-9967). Low-cost or free programs are offered by many hospitals, local chapters of the [place] [employer] (858-766-4479) and the [place] [employer] (175-529-0856). Support at home is important too. Non-smokers can help by offering praise and encouragement. If the smoker fails to quit, encourage them to try again! Hzqt-Doj-Rbecifh Medicines: For those who can't quit on their own, Nicotine Replacement Therapy (NRT) may make quitting much easier. Certain aids such as the nicotine patch, gum and lozenge are available without a prescription. However, it is best to use these under the guidance of your doctor. The skin patch provides a steady supply of nicotine to the body. Nicotine gum and lozenge gives temporary bursts of low levels of nicotine. Both methods take the edge off the craving for cigarettes. WARNING: If you feel symptoms of nicotine overdose, such as nausea, vomiting, dizziness, weakness, or fast heartbeat, stop using these and see your doctor. Prescription Medicines: After evaluating your smoking patterns and prior attempts at quitting, your doctor may offer a prescription medicine such as bupropion (Zyban, Wellbutrin), varenicline (Chantix, Champix), a niocotine inhaler or nasal spray. Each has its unique advantage and side effects which your doctor can review with you. Health Benefits Of Quitting: The benefits of quitting start right away and keep improving the longer you go without smokin minutes: blood pressure and pulse return to normal 8 hours: oxygen levels return to normal 2 days: ability to smell and taste begins to improve as damaged nerves start to regrow 2-3 weeks: circulation and lung function improves 1-9 months: decreased cough, congestion and shortness of breath; less tired 1 year: risk of heart attack decreases by half 5 years: risk of lung cancer decreases by half; risk of stroke becomes the same as a non-smoker For information about how to quit smoking, visit the following links: National Cancer [place] , Clearing the Air, Quit Smoking Today - an online booklet. http://www.smokefree.gov/pubs/clearing_the_air.pdf Smokefree.gov http://smokefree.gov/ QuitNet http://www.quitnet.com/ Ondansetron Oral disintegrating tablet What is this medicine? ONDANSETRON (on PABLO se renato) is used to treat nausea and vomiting caused by chemotherapy. It is also used to prevent or treat nausea and vomiting after surgery. How should I use this medicine? These tablets are made to dissolve in the mouth. Do not try to push the tablet through the foil backing. With dry hands, peel away the foil backing and gently remove the tablet. Place the tablet in the mouth and allow it to dissolve, then swallow. While you may take these tablets with water, it is not necessary to do so. Talk to your pianos and organs salesperson regarding the use of this medicine in children. Special care may be needed. What side effects may I notice from receiving this medicine? Side effects that you should report to your doctor or health medicare interviewer as soon as possible: allergic reactions like skin rash, itching or hives, swelling of the face, lips, or tongue breathing problems dizziness fast or irregular heartbeat feeling faint or lightheaded, falls fever and chills swelling of the hands and feet tightness in the chest Side effects that usually do not require medical attention (report to your doctor or health medicare interviewer if they continue or are bothersome): constipation or diarrhea headache What may interact with this medicine? Do not take this medicine with any of the following medications: -apomorphine -cisapride -dofetilide -dronedarone -pimozide -thioridazine -ziprasidone This medicine may also interact with the following medications: -carbamazepine -phenytoin -rifampicin -tramadol -other medicines that prolong the QT interval (cause an abnormal heart rhythm) What if I miss a dose? If you miss a dose, take it as soon as you can. If it is almost time for your next dose, take only that dose. Do not take double or extra doses. Where should I keep my medicine? Keep out of the reach of children. Store between 2 and 30 degrees C (36 and 86 degrees F). Throw away any unused medicine after the expiration date. What should I tell my health care provider before I take this medicine? They need to know if you have any of these conditions: heart disease history of irregular heartbeat liver disease low levels of magnesium or potassium in the blood an unusual or allergic reaction to ondansetron, granisetron, other medicines, foods, dyes, or preservatives or trying to get breast-feeding What should I watch for while using this medicine? Check with your doctor or health medicare interviewer as soon as you can if you have any sign of an allergic reaction. You have been given the following additional information: Pharyngitis, Viral Smoking Cessation Ondansetron Oral disintegrating tablet (Electronically signed by Triston Canas Dr. 11/19/2016 1:30)
--- NOTE | 2016-11-19 01:42 | ED MAR SUMMARY ---
..... Medication Administration Record [facility] [address] [place] [address] Patient: TRINITY PETTIT Visit ID: [id number] 21y, M Weight: 77.1 kg Height/Length: 71 in BMI: 23.7 ALLERGIES: Penicillin Given 01:10 11/19/2016 Dae Adler R.N. Medication Administered: ZOFRAN ODT [PO] (ONDANSETRON), Dose: 4 mg Oral Disintegrating Tablets PO. Medication Ordered: Zofran ODT PO 4 mg (NOW).
--- NOTE | 2016-11-19 01:42 | ED MED RECONCILIATION SUMMARY ---
Patient: TRINITY PETTIT Medication Reconciliation Report [facility] VisitID: [id number] [address] [place] [address] 21y, M Registration Date/Time: 11/19/2016 Weight: 77.1 kg Height/Length: 71 in. BMI: 23.7 ALLERGIES: Penicillin The patient's Home Medications are listed below: NONE. The source(s) of the original Home Medication information: Not obtained. The following Medications were given to the patient in the Emergency Department: Zofran ODT [PO] PO 4 mg, administered: 11/19/2016 1:10:00 AM The following Medications were prescribed to the patient: Zofran (orally disintegrating tablets) 4 mg: take 1 orally every 6 hours as needed for nausea and vomiting. Dispense ten (10). No refill. Substitution is permissible. -- Triston Canas Dr.
--- NOTE | 2016-11-19 01:42 | ED MED RECONCILIATION SUMMARY ---
Patient: TRINITY PETTIT Medication Reconciliation Report [facility] VisitID: [id number] [address] [place] [address] 21y, M Registration Date/Time: 11/19/2016 Weight: 77.1 kg Height/Length: 71 in. BMI: 23.7 ALLERGIES: Penicillin The patient's Home Medications are listed below: NONE. The source(s) of the original Home Medication information: Not obtained. The following Medications were given to the patient in the Emergency Department: Zofran ODT [PO] PO 4 mg, administered: 11/19/2016 1:10:00 AM The following Medications were prescribed to the patient: Zofran (orally disintegrating tablets) 4 mg: take 1 orally every 6 hours as needed for nausea and vomiting. Dispense ten (10). No refill. Substitution is permissible. -- Triston Canas Dr.
--- NOTE | 2016-11-19 01:42 | ED MAR SUMMARY ---
..... Medication Administration Record [facility] [address] [place] [address] Patient: TRINITY PETTIT Visit ID: [id number] 21y, M Weight: 77.1 kg Height/Length: 71 in BMI: 23.7 ALLERGIES: Penicillin Given 01:10 11/19/2016 Dae Adler R.N. Medication Administered: ZOFRAN ODT [PO] (ONDANSETRON), Dose: 4 mg Oral Disintegrating Tablets PO. Medication Ordered: Zofran ODT PO 4 mg (NOW).
--- NOTE | 2016-11-19 01:42 | ED DISCHARGE INSTRUCTIONS ---
Patient: TRINITY PETTIT General Instructions [facility] VisitID: [id number] [place] [address] 21y, M Registration Date/Time: 11/19/2016 Acute viral pharyngitis Vomiting with nausea. Not bilious. INSTRUCTIONS Drink plenty of fluids. Do not smoke. Seek medical help to quit smoking. Your Current Medications: CONTINUE TAKING THE FOLLOWING MEDICATIONS: None*. Prescription Medications: Zofran (orally disintegrating tablets) 4 mg: take 1 orally every 6 hours as needed for nausea and vomiting. Dispense ten (10). No refill. Substitution is permissible. ADDITIONAL INFORMATION Viral Pharyngitis (Sore Throat) Your throat pain is due to an infection called "Viral Pharyngitis", commonly known as "Sore Throat". This is a contagious illness. It is spread through the air by coughing, kissing or by touching others after touching your mouth or nose. Symptoms include throat pain worse with swallowing, aching all over, headache and fever. Unlike strep throat, which is a bacterial infection, this illness does not require treatment with an antibiotic. Home Care: If your symptoms are severe, rest at home for the first 2-3 days. Children: Use acetaminophen (Tylenol) for fever, fussiness or discomfort. In infants over six months of age, you may use ibuprofen (Children's Motrin) instead of Tylenol. [NOTE: If your child has chronic liver or kidney disease or ever had a stomach ulcer or GI bleeding, talk with your chris doctor before using these medicines.] (Aspirin should never be used in anyone under 18 years of age who is ill with a fever. It may cause severe liver damage.) Adults: You may use acetaminophen (Tylenol) or ibuprofen (Motrin, Advil) to control pain or fever, unless another medicine was prescribed. [NOTE: If you have chronic liver or kidney disease or ever had a stomach ulcer or GI bleeding, talk with your doctor before using these medicines.] Throat lozenges or sprays (Chloraseptic and others) will reduce pain. Gargling with warm salt water will also reduce throat pain. Dissolve 1/2 teaspoon of salt in 1 glass of warm water. This is especially useful just before meals. Follow Up with your doctor or as directed by our staff if you are not improving over the next week. Get Prompt Medical Attention if any of the following occur: Fever over 100.5F (38.0C) oral, or over 101.5F (38.6C) rectal for more than three days New or worsening ear pain, sinus pain or headache Painful lumps in the back of your neck Unable to swallow liquids or open your mouth wide due to throat pain Trouble breathing or noisy breathing Muffled voice New rash How To Quit Smoking Smoking is one of the hardest habits to break. About half of all those who have ever smoked have been able to quit, and most of those (about 70%) who still smoke want to quit. Here are some of the best ways to stop smoking. Keep Trying: It takes most smokers about 8 tries before they are finally able to fully quit. So, the more often you try and fail, the better your chance of quitting the next time! So, don't give up! Go Cold [place]: Most ex-smokers quit cold turkey. Trying to cut back gradually doesn't seem to work as well, perhaps because it continues the smoking habit. Also, it is possible to fool yourself by inhaling more while smoking fewer cigarettes. This results in the same amount of nicotine in your body! Get Support: Support programs can make an important difference, especially for the heavy smoker. These groups offer lectures, methods to change your behavior and peer support. Call the free national Quitline for more information. 230-CTTF-CAD (521-437-0744). Low-cost or free programs are offered by many hospitals, local chapters of the [place] [employer] (548-280-3558) and the [place] [employer] [employer] (038-909-1088). Support at home is important too. Non-smokers can help by offering praise and encouragement. If the smoker fails to quit, encourage them to try again! Ledb-Vdo-Yffnxse Medicines: For those who can't quit on their own, Nicotine Replacement Therapy (NRT) may make quitting much easier. Certain aids such as the nicotine patch, gum and lozenge are available without a prescription. However, it is best to use these under the guidance of your doctor. The skin patch provides a steady supply of nicotine to the body. Nicotine gum and lozenge gives temporary bursts of low levels of nicotine. Both methods take the edge off the craving for cigarettes. WARNING: If you feel symptoms of nicotine overdose, such as nausea, vomiting, dizziness, weakness, or fast heartbeat, stop using these and see your doctor. Prescription Medicines: After evaluating your smoking patterns and prior attempts at quitting, your doctor may offer a prescription medicine such as bupropion (Zyban, Wellbutrin), varenicline (Chantix, Champix), a niocotine inhaler or nasal spray. Each has its unique advantage and side effects which your doctor can review with you. Health Benefits Of Quitting: The benefits of quitting start right away and keep improving the longer you go without smokin minutes: blood pressure and pulse return to normal 8 hours: oxygen levels return to normal 2 days: ability to smell and taste begins to improve as damaged nerves start to regrow 2-3 weeks: circulation and lung function improves 1-9 months: decreased cough, congestion and shortness of breath; less tired 1 year: risk of heart attack decreases by half 5 years: risk of lung cancer decreases by half; risk of stroke becomes the same as a non-smoker For information about how to quit smoking, visit the following links: [employer] [facility] [place] [facility] , Clearing the Air, Quit Smoking Today - an online booklet. http://www.smokefree.gov/pubs/clearing_the_air.pdf Smokefree.gov http://smokefree.gov/ QuitNet http://www.quitnet.com/ Ondansetron Oral disintegrating tablet What is this medicine? ONDANSETRON (on PABLO se renato) is used to treat nausea and vomiting caused by chemotherapy. It is also used to prevent or treat nausea and vomiting after surgery. How should I use this medicine? These tablets are made to dissolve in the mouth. Do not try to push the tablet through the foil backing. With dry hands, peel away the foil backing and gently remove the tablet. Place the tablet in the mouth and allow it to dissolve, then swallow. While you may take these tablets with water, it is not necessary to do so. Talk to your certification officer regarding the use of this medicine in children. Special care may be needed. What side effects may I notice from receiving this medicine? Side effects that you should report to your doctor or health district manager primary care sales as soon as possible: allergic reactions like skin rash, itching or hives, swelling of the face, lips, or tongue breathing problems dizziness fast or irregular heartbeat feeling faint or lightheaded, falls fever and chills swelling of the hands and feet tightness in the chest Side effects that usually do not require medical attention (report to your doctor or health district manager primary care sales if they continue or are bothersome): constipation or diarrhea headache What may interact with this medicine? Do not take this medicine with any of the following medications: -apomorphine -cisapride -dofetilide -dronedarone -pimozide -thioridazine -ziprasidone This medicine may also interact with the following medications: -carbamazepine -phenytoin -rifampicin -tramadol -other medicines that prolong the QT interval (cause an abnormal heart rhythm) What if I miss a dose? If you miss a dose, take it as soon as you can. If it is almost time for your next dose, take only that dose. Do not take double or extra doses. Where should I keep my medicine? Keep out of the reach of children. Store between 2 and 30 degrees C (36 and 86 degrees F). Throw away any unused medicine after the expiration date. What should I tell my health care provider before I take this medicine? They need to know if you have any of these conditions: heart disease history of irregular heartbeat liver disease low levels of magnesium or potassium in the blood an unusual or allergic reaction to ondansetron, granisetron, other medicines, foods, dyes, or preservatives or trying to get breast-feeding What should I watch for while using this medicine? Check with your doctor or health district manager primary care sales as soon as you can if you have any sign of an allergic reaction. You have been given the following additional information: Pharyngitis, Viral Smoking Cessation Ondansetron Oral disintegrating tablet (Electronically signed by Triston Canas Dr. 11/19/2016 1:30)
== END 2016-11-19 01:37 | disposition home or self-care (01) ==
LOC: ED SRH 00:39
DX: J02.8 Acute pharyngitis due to other specified organisms (principal); B97.89 Other viral agents as the cause of diseases classified elsewhere; R11.2 Nausea with vomiting, unspecified; F17.210 Nicotine dependence, cigarettes, uncomplicated; Z88.0 Allergy status to penicillin
CPT/HCPCS: 90154; 90159; 90627